=== PATIENT | female | born 1995 | race Caucasian/White ===

== ENCOUNTER 2018-04-12 09:34 | Outpatient (CLI) | payer OTHER | END 2018-04-12 21:00 | disposition home or self-care (01) | LOC: MRD 09:34 → EDSTATUS 04-16 10:20 | PROVIDERS: ATTEND Surgery | DX: Z01.818 Encounter for other preprocedural examination (principal); K40.90 Unilateral inguinal hernia, without obstruction or gangrene, not specified as recurrent | CPT/HCPCS: 71045 ==

== ENCOUNTER 2018-05-22 06:02 | Day surgery (SDC) | payer OTHER ==
[~2018-05-22] VITALS: Ht 157.5 cm; Wt 61.2 kg
[2018-05-22] MEDS ORDERED: CLINDAMYCIN PHOS 600MG/D5W PM 50 ML IV SCH (07:07)
[2018-05-22] MEDS ORDERED: SUCCINYLCHOLINE CHLORIDE 200 MG/10 ML VIAL IVP ONE (07:20)
[2018-05-22] MEDS ORDERED: DEXAMETHASONE 4 MG/ML VIAL ONE (07:20)
[2018-05-22] MEDS ORDERED: SEVOFLURANE 250 ML BTL INH ONE (07:20)
[2018-05-22] MEDS ORDERED: ONDANSETRON 4 MG/2 ML VIAL ONE (07:20)
[2018-05-22] MEDS ORDERED: KETOROLAC 30 MG/ML VIAL ONE (07:20)
[2018-05-22] MEDS ORDERED: PROPOFOL 200 MG/20 ML VIAL IV ONE (07:20)
[2018-05-22] MEDS ORDERED: BUPIVACAINE-MPF/EPI 0.25% 30 ML VIAL INJ ONE (07:24)
[2018-05-22] MEDS ORDERED: CLINDAMYCIN 600 MG/4 ML VIAL ONE (07:26)
[2018-05-22] MEDS ORDERED: fentaNYL 0.05 MG/ML VIAL ONE (07:35)
[2018-05-22] MEDS ORDERED: MIDAZOLAM 2 MG/2 ML VIAL ONE (07:35)
[2018-05-22] MEDS ORDERED: MEPERIDINE 50 MG/ML SYR ONE (07:36)
[2018-05-22] MEDS ORDERED: NACL 0.9% 1,000 ML IV SCH (08:43)
[2018-05-22] MEDS ORDERED: HYDROmorphone 1 MG/ML AMP IVP PRN ×2 (08:45→08:50)
[2018-05-22] MEDS ORDERED: HYDROcodone/APAP 5/325 MG 1 TAB TAB PO PRN (08:45)
[2018-05-22] MEDS ORDERED: MORPHINE SULFATE 4 MG/ML SYR IV PRN (08:45)
[2018-05-22] MEDS ORDERED: ONDANSETRON 4 MG/2 ML VIAL IV PRN (08:45)
[2018-05-22] MEDS ORDERED: LACTATED RINGERS 1,000 ML IV SCH (08:48)
[2018-05-22] MEDS ORDERED: MEPERIDINE 25 MG/ML SYR IVP PRN (08:50)
[2018-05-22] MEDS ORDERED: diphenhydrAMINE 50 MG/ML VIAL IVP PRN (08:50)
[2018-05-22] MEDS ORDERED: ONDANSETRON 4 MG/2 ML VIAL IVP PRN (08:50)
== END 2018-05-22 10:45 | disposition home or self-care (01) ==
LOC: MDS 06:02 → MMU 06:04 → MDS 10:45
PROVIDERS: ATTEND Surgery
DX: K40.90 Unilateral inguinal hernia, without obstruction or gangrene, not specified as recurrent (principal); Z98.890 Other specified postprocedural states; Z88.0 Allergy status to penicillin
CPT/HCPCS: 49505; 71045; C1781; J0330; J1100; J1885; J2250; J2405; J2704; J3010; J3490; J7120; J2175